=== PATIENT | female | born 1980 | race Caucasian/White ===

== ENCOUNTER 2017-05-17 10:01 | Emergency (ER) | payer MEDICAID, OTHER ==
[2017-05-17] MEDS ORDERED: Ondansetron 4 MG/2 ML SDV IVPUSH ONE (10:44)
[2017-05-17] MEDS ORDERED: Famotidine 20 MG/2 ML SDV IVPUSH ONE (10:44)
[2017-05-17] MEDS ORDERED: Sodium Chloride 0.9% 10 ML Syringe FLUSH PRN (10:44)
[2017-05-17] MEDS ORDERED: Ketorolac 30 MG/ML SDV IVPUSH SCH (10:45)
[2017-05-17] MEDS ORDERED: Sodium Chloride 0.9% 1,000 ML IV SCH (10:45)
--- NOTE | 2017-05-17 12:33 | EDM.PDOC ---
ED HPI GENERAL MEDICAL PROBLEM - General Chief Complaint: Gastrointestinal Problem Stated Complaint: VOMITING Time Seen by Provider: 05/17/17 10:28 Source of Information: Reports: Patient, RN Notes Reviewed - History of Present Illness INITIAL COMMENTS - FREE TEXT/NARRATIVE: 36-year-old female with onset of abdominal pain, vomiting, diarrhea 1-1/2 days ago. Still continues this morning. When she does try to drink fluids she has immediate dry heaves followed soon thereafter by watery diarrhea. She feels sick. Mild chills, no definite fever. States there is a lot of stomach flu going around her community. intermittent abdominal cramps, especially when she does try to drink fluids. Her mouth is starting to get dry. 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 GI Surgical History: Reports: Appendectomy Musculoskeletal Surgical History: Reports: Other (See Below) Other Musculoskeletal Surgeries/Procedures:: knee scope Social & Family History - Family History Oncologic: Reports: Breast - Tobacco Use Smoking Status *Q: Never Smoker Second Hand Smoke Exposure: No - Caffeine Use Caffeine Use: Reports: Soda - Recreational Drug Use Recreational Drug Use: No ED ROS GENERAL - Review of Systems Review Of Systems: See Below Constitutional: Reports: Chills. Denies: Fever HEENT: Reports: No Symptoms Respiratory: Denies: Shortness of Breath, Pleuritic Chest Pain Cardiovascular: Denies: Chest Pain GI/Abdominal: Reports: Abdominal Pain, Diarrhea, Nausea, Vomiting Musculoskeletal: Reports: Other Skin: Denies: Rash (Mild achiness) Neurological: Reports: Dizziness. Denies: Headache, Trouble Speaking, Difficulty Walking ED EXAM, GI/ABD - Physical Exam Exam: See Below General Appearance: Alert, Moderate Distress Eyes: Bilateral: Normal Appearance Throat/Mouth: Normal Inspection Head: Atraumatic. No: Facial Swelling Neck: Supple, Full Range of Motion Respiratory/Chest: No Respiratory Distress, Lungs Clear, Normal Breath Sounds Cardiovascular: Regular Rate, Rhythm GI/Abdominal Exam: Soft, Tender (Mild diffuse tenderness). No: Guarding, Rebound (, increased tenderness upper abdomen compared to lower abdomen) Extremities: Normal Inspection, Normal Range of Motion Neurological: Alert, No Motor/Sensory Deficits Skin Exam: Warm, Dry, Normal Color Course - Vital Signs Last Recorded V/S: Last Vital Signs Temp 96.8 F 05/17/17 10:10 Pulse 66 05/17/17 10:10 Resp 16 05/17/17 10:15 BP 111/81 05/17/17 10:10 Pulse Ox 98 05/17/17 10:15 - Orders/Labs/Meds Orders: Active Orders 24 hr Category Date Time Status Peripheral IV Care [RC] . DIRECTED Care 05/17/17 10:44 Active Peripheral IV Insertion Adult [OM.PC] Stat Oth 05/17/17 10:44 Ordered Meds: Medications Discontinued Medications Generic Name Dose Route Start Last Admin Trade Name Freq PRN Reason Stop Dose Admin Famotidine 20 mg 05/17/17 10:44 05/17/17 10:56 Pepcid IVPUSH 05/17/17 10:45 20 mg ONETIME ONE Administration Sodium Chloride 1,000 mls @ 999 mls/hr 05/17/17 10:45 05/17/17 11:00 Normal Saline IV 999 mls/hr ONETIME BHARGAV Administration Ketorolac Tromethamine 30 mg 05/17/17 10:45 Toradol IVPUSH ONETIME BHARGAV Ondansetron HCl 4 mg 05/17/17 10:44 05/17/17 11:02 Zofran IVPUSH 05/17/17 10:45 4 mg ONETIME ONE Administration Sodium Chloride 10 ml 05/17/17 10:44 05/17/17 11:01 Saline Flush FLUSH 10 ml ASDIRECTED PRN Administration Keep Vein Open - Re-Assessments/Exams Free Text/Narrative Re-Assessment/Exam: 05/17/17 13:49 Patient feels better after IV fluid and meds, discharge instructions as documented. Departure - Departure Time of Disposition: 12:31 Disposition: Home, Self-Care 01 Condition: Fair Clinical Impression: Vomiting, Diarrhea, Abdominal pain - Discharge Information Prescriptions: Ondansetron [Zofran ODT] 4 mg PO Q6H PRN #7 tab.dis PRN Reason: Nausea/Vomiting Instructions: Diarrhea, Adult, Abdominal Pain, Adult, [id number], Vomiting, Adult Referrals: Cheyenne Mayer, MEDICAL LIBRARIAN [Primary Care Provider] - Forms: ED Department Discharge, ED Return to Work/School Form Additional Instructions: Clear liquids until this evening, then very careful bland diet as tolerated, Zofran every 6-8 hours if needed for further nausea or vomiting, begin probiotic and take that 2-3 times daily for 1 week, follow-up clinic if not much better within 2-3 days as expected, return to ED as needed. - My Orders Last 24 Hours: My Active Orders 05/17/17 10:44 Peripheral IV Care [RC] . DIRECTED Peripheral IV Insertion Adult [OM.PC] Stat - Assessment/Plan Last 24 Hours: My Active Orders 05/17/17 10:44 Peripheral IV Care [RC] . DIRECTED Peripheral IV Insertion Adult [OM.PC] Stat
== END 2017-05-17 12:45 | disposition home or self-care (01) ==
LOC: JD.ED 10:01
DX: R19.7 Diarrhea, unspecified (principal); R11.10 Vomiting, unspecified; R10.9 Unspecified abdominal pain; Z88.5 Allergy status to narcotic agent; Z91.012 Allergy to eggs
CPT/HCPCS: 96361; 96374; 96375; 99284; J2405; J7040; J7050

== ENCOUNTER 2023-10-09 11:53 | Emergency (ER) | payer MEDICAID ==
[2023-10-09 13:09] LABS: BASOPHILS PERCENT AUTO 0.3 % (0.0-1.0); EOSINOPHILS ABSOLUTE AUTO 0.3 K/mm3 (0.0-0.4); EOSINOPHILS PERCENT AUTO 4.1 % (0.0-6.0); HEMATOCRIT 46.8 % (37.0-47.0); HEMOGLOBIN 15.7 gm/dl (12.0-16.0); IMMATURE GRAN ABSOLUTE AUTO 0.02 K/mm3 (0.00-0.05); IMMATURE GRAN PERCENT AUTO 0.3 % (0.0-0.4); LYMPHOCYTES ABSOLUTE AUTO 1.3 K/mm3 (1.0-4.8); LYMPHOCYTES PERCENT AUTO 21.3 % (24.0-44.0); MEAN CORPUSCULAR HEMOGLOBIN 27.4 pg (28.0-32.0); MEAN CORPUSCULAR HGB CONC 33.5 g/dl (32.0-36.0); MEAN CORPUSCULAR VOLUME 81.8 fl (83.0-99.0); MEAN PLATELET VOLUME 9.9 fl (9.4-12.3); MONOCYTES ABSOLUTE AUTO 0.6 K/mm3 (0.0-0.8); MONOCYTES PERCENT AUTO 9.3 % (0.0-8.0); NEUTROPHILS ABSOLUTE AUTO 3.9 K/mm3 (1.8-7.7); NEUTROPHILS PERCENT AUTO 64.7 % (41.0-71.0); PLATELET COUNT,PLT 318 K/mm3 (150-400); RED BLOOD CELL COUNT 5.72 M/mm3 (4.10-5.30); WHITE BLOOD CELL COUNT,WBC 6.05 K/mm3 (3.9-11.3)
[2023-10-09] MEDS: methylPREDNISolone Sodium Succinate 125 MG/2 ML SDV IVPUSH ONE (13:23)
[2023-10-09] MEDS: Ketorolac 30 MG/ML SDV IVPUSH ONE (13:23)
[2023-10-09] MEDS: Sodium Chloride 0.9% 10 ML Syringe FLUSH PRN (13:25)
[2023-10-09 13:33] LABS: A/G RATIO 1.4 (1-2); ALBUMIN 4.2 g/dl (3.4-5.0); ANION GAP 15.9 (5-15); BILIRUBIN TOTAL 0.5 mg/dL (0.2-1.0); CALCIUM 9.1 mg/dL (8.5-10.1); EST CRCL DRUG DOSING (CG) 83.65 mL/min; POTASSIUM,K 3.9 mEq/L (3.5-5.1); PROTEIN TOTAL,TP 7.3 g/dl (6.4-8.2)
[2023-10-09 13:39] LABS: BUN/CREATININE RATIO 11.4 (14-18); CREATININE 0.7 mg/dL (0.55-1.02)
[2023-10-09] MEDS: Lidocaine 1% with EPINEPHrine 1:100,000 20 ML MDV ONE (14:08)
[2023-10-09] MEDS: Lidocaine 1% 20 ML MDV ONE (14:19)
== END 2023-10-09 14:59 | disposition home or self-care (01) ==
LOC: JD.ED 11:53 → MERGE 11:53 → JD.ED 14:59
DX: S33.5XXA Sprain of ligaments of lumbar spine, initial encounter (principal); M54.16 Radiculopathy, lumbar region; Z88.5 Allergy status to narcotic agent; Z79.899 Other long term (current) drug therapy; X50.0XXA Overexertion from strenuous movement or load, initial encounter; Y93.89 Activity, other specified
CPT/HCPCS: 36415; 72131; 72131-26; 80053; 83735; 85025; 96374; 96375; 99284-25; J1885; J2919; J3360; J3490

== ENCOUNTER 2024-12-01 09:47 | Emergency (ER) | payer MEDICAID ==
[2024-12-01] MEDS ORDERED: Sodium Chloride 0.9% 10 ML Syringe FLUSH PRN (10:26)
[2024-12-01 10:59] LABS: BASOPHILS ABSOLUTE AUTO 0.0 K/mm3 (0.0-0.2); BASOPHILS PERCENT AUTO 0.2 % (0.0-1.0); EOSINOPHILS ABSOLUTE AUTO 0.1 K/mm3 (0.0-0.4); EOSINOPHILS PERCENT AUTO 1.1 % (0.0-6.0); IMMATURE GRAN ABSOLUTE AUTO 0.03 K/mm3 (0.00-0.05); IMMATURE GRAN PERCENT AUTO 0.3 % (0.0-0.4); LYMPHOCYTES ABSOLUTE AUTO 2.1 K/mm3 (1.0-4.8); LYMPHOCYTES PERCENT AUTO 21.5 % (24.0-44.0); MEAN PLATELET VOLUME 9.8 fl (9.4-12.3); MONOCYTES ABSOLUTE AUTO 0.9 K/mm3 (0.0-0.8); MONOCYTES PERCENT AUTO 9.4 % (0.0-8.0); NEUTROPHILS ABSOLUTE AUTO 6.6 K/mm3 (1.8-7.7); NEUTROPHILS PERCENT AUTO 67.5 % (41.0-71.0); NRBC ABSOLUTE 0.00 (0.00-0.02); NRBC PERCENT 0.0 % (0.0-0.2); PLATELET COUNT,PLT 381 K/mm3 (150-400); RED BLOOD CELL COUNT 6.11 M/mm3 (4.10-5.30); WHITE BLOOD CELL COUNT,WBC 9.79 K/mm3 (3.9-11.3)
[2024-12-01] MEDS: droPERidol 2.5 MG/ML SDV IV ONE (11:19)
[2024-12-01] MEDS: hydrALAZINE 20 MG/ML SDV IVPUSH ONE (11:24)
[2024-12-01 11:28] LABS: A/G RATIO 1.2 (1-2); ALANINE AMINOTRANSFERASE,ALT 38.0 U/L (14-59); ASPARTATE AMNIOTRANSFERASE,AST 17.0 U/L (15-37); BILIRUBIN TOTAL 0.8 mg/dL (0.2-1.0); BLOOD UREA NITROGEN,BUN 8.0 mg/dL (7-18); CARBON DIOXIDE,CO2 24.0 mEq/L (21-32); CHLORIDE,CL 104.0 mEq/L (98-107); CREATININE 0.7 mg/dL (0.55-1.02); EST CRCL DRUG DOSING (CG) 79.0 mL/min; ESTIMATED GFR 111.0 mL/min (>60); GLUCOSE RANDOM 84.0 mg/dL (70-99); POTASSIUM,K 3.4 mEq/L (3.5-5.1); PROTEIN TOTAL,TP 8.0 g/dl (6.4-8.2); SODIUM,NA 143.0 mEq/L (136-145)
[2024-12-01] MEDS: diphenhydrAMINE 50 MG/ML SDV IVPUSH ONE (11:28)
[2024-12-01] MEDS: Labetalol 100 MG/20 ML MDV IVPUSH ONE (13:34)
== END 2024-12-01 14:53 | disposition home or self-care (01) ==
LOC: JD.ED 09:47
DX: I10 Essential (primary) hypertension (principal); Z88.5 Allergy status to narcotic agent; Z91.012 Allergy to eggs; Z79.899 Other long term (current) drug therapy
CPT/HCPCS: 36415; 70450; 80053; 84703; 85025; 96361; 96374; 96375; 99284; J0360; J1171; J1200; J1790; J1920; J7030